=== PATIENT | female | born 1970 | race Caucasian/White ===

== ENCOUNTER 2016-08-08 09:45 | Emergency (ER) ==
[2016-08-08 09:54] VITALS: BP 139/92
[2016-08-08] MEDS ORDERED: XYLOCAINE-MPF 1% INJ ONE ×2 (10:05→10:06)
[2016-08-08] MEDS ORDERED: ROCEPHIN IM ONE (10:06)
--- NOTE | 2016-08-08 10:14 | PROVIDER DOCUMENTATION ---
HPI-Animal/Snake Bite Injury - General Patient arrived via EMS?: No Source: patient - History of Present Illness-Bite Injuries Onset/Duration: just prior to arrival Timing: reports: still present Locality of Occurance: Home Severity: mild Quality: painful Loss of Consciousness: no loss of consciousness Remembers:: injury, coming to hospital Similar Symptoms Previously?: No Recently seen or treated by another doctor?: No - Animal Bite Bite Injury Location: reports: hands (R ulnar aspect of hand) Animal:: reports: dog, family pet Appearance of Animal: appeared well Observation/Capture: animal is known/can be observed 10 days Context of Attack: reports: "unprovoked" attack Severity of Bite Injury: bitten <Glenny Strickland - Last Filed: 08/08/16 10:10> <Keila Parekh - Last Filed: 08/08/16 10:34> - General Chief Complaint: Animal Bite Stated Complaint: LACERATION[S] Time Seen by Provider: 08/08/16 09:57 Allergies/Adverse Reactions: Patient Allergies Allergy/AdvReac Type Severity Reaction Status Date / Time No Known Allergies Allergy Verified 08/08/16 09:53 Home Medications: Home Medication List Medication Instructions Recorded Confirmed Last Taken Type Amoxicillin/Pot Clavulanate 875 mg PO Q12HR #14 tablet 08/08/16 Unknown Rx [Augmentin] - History of Present Illness-Bite Injuries Nature of Presenting Problem: Pt is 46 y/o F presents to the ED with bite to R hand. Pt states her pit bit her on R hand. Pt states she thinks her dog was just excited to see her and accidentally bit her. Pt denies other injuries. Pt states she is up to date on shots and does not want one in ED. (Glenny Strickland) Review of Systems - Adult - REVIEW OF SYSTEMS - ADULT Constitutional: denies: chills, fever Eyes: denies: blurred vision, double vision Ears, Nose, Mouth & Throat: denies: ear pain, nose pain, throat pain Cardiovascular: denies: chest pain, heart murmur, irregular heart rate Respiratory: denies: cough, shortness of breath, wheezing Gastrointestinal: denies: abdominal pain, difficulty swallowing, nausea, vomiting Genitourinary: denies: dysuria, hematuria Musculoskeletal: denies: bone pain, joint pain, neck pain Integumentary: reports: other (lac to R ulnar aspect of hand). denies: hives, itching Neurological: denies: dizziness/vertigo, headache/migraines Psychiatric: reports: no symptoms reported Endocrine: reports: no symptoms reported Hematologic/Lymphatic: reports: no symptoms reported Allergic/Immunologic: reports: no symptoms reported All Other Systems: Reviewed and Negative <Marco AGlenny - Last Filed: 08/08/16 10:10> Past History - Adult - PAST MEDICAL HISTORY-ADULT Review of Records: reports: Nursing Assessment Review, Medications Reviewed, Social history reviewed & non-contributory. Major Childhood Illnesses: reports: denies history Cardiovascular: reports: denies history Respiratory: reports: denies history Gastrointestinal: reports: denies history Obstetrical/Gynecological: reports: denies history Genitourinary: reports: denies history Musculoskeletal: reports: denies history Neurological: reports: denies history Endocrine/Immune: reports: denies history Other Conditions: reports: denies history - PRIOR SURGERIES/PROCEDURES Surgical/Procedure History: reports: reviewed, not pertinent - IMMUNIZATION STATUS Childhood Immunizations: See Nurse Assessment Flu Vaccine: See Nurse Assessment - FAMILY HISTORY Family History: reviewed, not pertinent - SOCIAL HISTORY Smoking: denies Substance Use: denies Living Situation: family <Marco AGlenny - Last Filed: 08/08/16 10:10> Physical Exam-General - PHYSICAL EXAM-ADULT Initial Vital Signs Reviewed: Yes - CONSTITUTIONAL General Appearance: appears well, alert, no apparent distress - EYES Eyes: PERRL/EOMI, pink conjunctivae, fundi clear, no AV nicking - HEAD, EARS, NOSE, MOUTH & THROAT HENMT: normocephalic/atraumatic, moist mucous membranes, normal ENT inspection, TMs normal, pharynx normal - NECK Neck: non-tender, full range of motion, supple, normal inspection - RESPIRATORY Respiratory: chest non-tender, lungs clear, normal breath sounds, no pleuratic chest pain, no respiratory distress, no accessory muscle use - CARDIOVASCULAR Cardiovascular: normal peripheral pulses, regular rate, rhythm, no edema, no gallop, no JVD, no murmur - GASTROINTESTINAL (ABDOMEN) Abdominal Exam: normal bowel sounds, non tender, soft, no organomegaly, no pulsatile mass - LYMPHATIC Lymphatic: no adenopathy - MUSCULOSKELETAL Back Exam: normal inspection, no CVA tenderness, no vertebral tenderness Extremity: normal range of motion, normal gait, normal inspection, no pedal edema, no calf tenderness, normal capillary refill, tenderness (R ulnar aspect of hand) - SKIN Integumentary: normal color, normal turgor, warm/dry, laceration(s) (R ulnar aspect of hand) - NEUROLOGIC Neurologic: grossly normal - PSYCHIATRIC Psych/Mental Status: normal mood/affect, oriented x 3 <Glenny Strickland - Last Filed: 08/08/16 10:10> Progress <Glenny Strickland - Last Filed: 08/08/16 10:10> <Keila Parekh - Last Filed: 08/08/16 10:34> - PLAN OF CARE/RESULTS Progress/Plan/Lab Results: Orders Category Date Time Status Laceration Set up DIRECTED Care 08/08/16 10:05 Active CefTRIAXONE [Rocephin] Med 08/08/16 10:06 Discontinued 1 gm IM NOW ONE Lidocaine 1% Pf [Xylocaine-Mpf 1%] Med 08/08/16 10:05 Discontinued 5 ml INJ NOW ONE Lidocaine 1% Pf [Xylocaine-Mpf 1%] Med 08/08/16 10:06 Discontinued 5 ml INJ NOW ONE Vital Signs - 24 hr 08/08/16 09:50 Temperature 98.2 F Pulse Rate 83 Respiratory 16 Rate Blood Pressure 139/92 O2 Sat by Pulse 99 Oximetry (Glenny Strickland) Procedures - LACERATION/WOUND REPAIR/FB Right Hand Wound Length: 2 cm Wound's Depth, Shape: superficial Wound Explored/Foreign Body: clean Irrigated with Saline?: Yes Prepped with: Betadine, Kit Utilized Anesthetic: 1%, Lidocaine/Xylocaine Volume of Anesthetic (ml's): 5 Wound Debrided: minimal Wound Repaired with: Sutures Suture Size/Type: 4.0, Non-Absorbable Number of Sutures: 3 Layer Closure?: No Sterile Dressing Applied?: Yes Splint Applied?: No Sling Applied?: No Post Procedure Neurovascular Exam: Intact <Keila Parekh - Last Filed: 08/08/16 10:34> Departure <Glenny Strickland - Last Filed: 08/08/16 10:10> - Departure Time of Disposition Order: 10:32 Certified Medical Emergency: Emergent <Keila Parekh - Last Filed: 08/08/16 10:34> - Departure DIAGNOSIS: Laceration Animal bite of right hand Qualifiers: Encounter type: initial encounter Qualified Code(s): S61.451A - Open bite of right hand, initial encounter Disposition: HOME 01 Condition: Stable Additional Instructions: Return in 7 days for removal. Change bandages daily ED Follow Up Instructions: You have been treated by a care provider in the Emergency Department. These instructions are being provided to you so you can have an understanding of how to care for yourself upon discharge. Upon discharge from the Emergency Department, you are responsible for making arrangements for follow-up care by a physician of your choice. Take all prescribed medications as directed. Return to the Emergency Department immediately for any new or worsening symptoms. You may call the Physician Referral phone number at [phone] to obtain a list of Physicians who are taking new patients. Prescriptions: Amoxicillin/Pot Clavulanate [Augmentin] 875 mg PO Q12HR #14 tablet Attestation - Scribe Verification/Attestation Scribe:: Glenny Strickland Acting as Scribe for:: Keila Parekh Scribe documention review:: This chart was documented by a scribe and accurately reflects the service the provider performed and the decisions made by the provider. <Glenny Strickland - Last Filed: 08/08/16 10:10> Physician Attestation
== END 2016-08-08 11:06 | disposition home or self-care (01) ==
LOC: P.ED 09:45
DX: S61.411A Laceration without foreign body of right hand, initial encounter (principal); M79.641 Pain in right hand; W54.0XXA Bitten by dog, initial encounter
CPT/HCPCS: 90471; 96372; J0696